=== PATIENT | male | born 1960 | race Caucasian/White ===

== ENCOUNTER 2022-01-19 12:12 | Outpatient (RCR) | payer OTHER ==
[~2022-01-19 12:12] MED LIST: BENZTROPINE1 MG PO; CARBIDOPA & LEV1 TAB PO; CARDIZEM 60MG T60 MG PO; CYCLOBENZAPRINE10 MG PO; DOXEPIN; GABAPENTIN300 M1 PO; GEODON 20 MG20 MG PO; KLONOPIN 1MG1 MG PO; PIROXICAM; PRILOSEC 20MG20 MG PO; SINGULAIR10 MG PO; TRAMADOL50 MG PO; VALIUM 10MG10 MG/TAB PO; VENTOLIN0.09 MG IH; ZOCOR80 MG PO
== END 2022-01-21 | disposition home or self-care (01) ==
LOC: COL.CR
DX: I21.11 ST elevation (STEMI) myocardial infarction involving right coronary artery (principal); I25.10 Atherosclerotic heart disease of native coronary artery without angina pectoris

== ENCOUNTER → 2022-02-21 | Outpatient (RCR) | payer OTHER | END | disposition home or self-care (01) | LOC: COL.CR | DX: I50.22 Chronic systolic (congestive) heart failure (principal) ==

== ENCOUNTER 2022-03-28 14:49 | Outpatient (RCR) | payer OTHER | END 2022-04-23 | disposition still patient (30) | LOC: COL.CR | DX: I25.2 Old myocardial infarction (principal); I25.10 Atherosclerotic heart disease of native coronary artery without angina pectoris ==